=== PATIENT | male | born 1945 | race Caucasian/White ===

== ENCOUNTER 2020-11-23 19:19 | Emergency (ER) | payer MEDICARE, OTHER ==
[~2020-11-23] VITALS: Ht 177.8 cm; Wt 103.0 kg
[2020-11-23 20:04] LABS: HEMATOCRIT 48 % (40-54); HEMOGLOBIN 16.8 G/DL (13.3-17.7); MEAN CORPUSCULAR HEMOGLOBIN 31 PG (25-34); MEAN CORPUSCULAR VOLUME 89 FL (80-99); WHITE BLOOD COUNT 10.2 10^3/uL (4.3-11.0)
[2020-11-23 20:05] LABS: BASOPHILS % (AUTO) 0 % (0-10); EOSINOPHILS % (AUTO) 0 % (0-10); LYMPHOCYTES % (AUTO) 20 % (12-44); MEAN CORPUSCULAR HGB CONC 35 G/DL (32-36); MEAN PLATELET VOLUME 10.1 FL (7.4-10.4); MONOCYTES # (AUTO) 0.8 X 10^3 (0.0-1.0); MONOCYTES % (AUTO) 8 % (0-12); NEUTROPHILS # (AUTO) 7.4 X 10^3 (1.8-7.8); NEUTROPHILS % (AUTO) 72 % (42-75); PLATELET COUNT 290 10^3/uL (130-400)
[2020-11-23 20:09] LABS: BACTERIA,URINE NEGATIVE /HPF; BILIRUBIN,URINE NEGATIVE (NEGATIVE); CLARITY,URINE CLEAR; COLOR,URINE YELLOW; GLUCOSE, URINE (UA) NEGATIVE (NEGATIVE); KETONES,URINE TRACE (NEGATIVE); LEUKOCYTE ESTERASE ,URINE NEGATIVE (NEGATIVE); NITRITE,URINE NEGATIVE (NEGATIVE); PROTEIN,URINE NEGATIVE (NEGATIVE); RBC,URINE 0-2 /HPF
[2020-11-23 20:22] LABS: CHLORIDE 102 MMOL/L (98-107); POTASSIUM 4.1 MMOL/L (3.6-5.0); SODIUM 140 MMOL/L (135-145)
[2020-11-23 20:23] LABS: ALANINE AMINOTRANSFERASE 30 U/L (0-55); ALBUMIN 4.5 GM/DL (3.2-4.5); ALKALINE PHOSPHATASE 93 U/L (40-136); BILIRUBIN,TOTAL 0.6 MG/DL (0.1-1.0); BUN/CREATININE RATIO 19; CALCIUM 9.6 MG/DL (8.5-10.1); CARBON DIOXIDE 24 MMOL/L (21-32); CREATININE SERUM 0.81 MG/DL (0.60-1.30); GFR ESTIMATED > 60; GLUCOSE 153 MG/DL (70-105); LIPASE 34 U/L (8-78); TOTAL PROTEIN 7.9 GM/DL (6.4-8.2)
[2020-11-23] MEDS ORDERED: ONDANSETRON 4 MG/2 ML (SDV) Z0FRAN ONE (20:35)
[2020-11-23] MEDS ORDERED: fentaNYL INJECTION 100 MCG/2 ML AMP IVP ONE ×2 (20:45→22:15)
[2020-11-23] MEDS ORDERED: ONDANSETRON 4 MG/2 ML (SDV) Z0FRAN IVP ONE (20:45)
[2020-11-23] MEDS ORDERED: NS 100 ML (IVPB) BAG IV ONE (21:15)
[2020-11-23] MEDS ORDERED: IOHEXOL 350 MG/ML 100 ML (OMNIPAQUE 350) VIAL IV ONE (21:15)
[2020-11-23] MEDS ORDERED: HOLD METFORMIN - RECEIVED CONTRAST 20 ML VIAL IV SCH (21:15)
--- NOTE | 2020-11-23 21:23 | ED General ---
General Chief Complaint: Abdominal/GI Problems Stated Complaint: STOMACHE PAIN/VOMITING Nursing Triage Note: PT AMBULATE TO ROOM FS01 WITH C/O ABD PAIN, N/V. PT DENIES DIARRHEA, COUGH, FEVER. Nursing Sepsis Screen: No Definite Risk Source of Information: Patient History of Present Illness Date Seen by Provider: Nov 23, 2020 Time Seen by Provider: 19:25 Initial Comments Patient is a 75-year-old male with history of umbilical hernia repair who presents with diffuse midabdominal pain nausea vomiting episodes the past several hours. Patient states symptoms are worse after eating and drinking. Reports normal bowel movement this morning with very little flatus this afternoon. No fever chills, cough, sore throat. No chest pain palpitation shortness of breath. No urinary frequency urgency sure area. No other acute symptoms or complaints. Timing/Duration: 4-6 Hours Severity: Moderate Modifying Factors: improves with Eating Associated Systoms: Nausea/Vomiting Allergies and Home Medications Allergies Coded Allergies: No Known Allergies (Verified Allergy, Unknown, 11/23/20) Patient Home Medication List Home Medication List Reviewed: Yes Review of Systems Review of Systems Constitutional: no symptoms reported EENTM: no symptoms reported Respiratory: no symptoms reported Cardiovascular: no symptoms reported Gastrointestinal: no symptoms reported Genitourinary: no symptoms reported Musculoskeletal: no symptoms reported Skin: no symptoms reported Psychiatric/Neurological: No Symptoms Reported Hematologic/Lymphatic: No Symptoms Reported Immunological/Allergic: no symptoms reported All Other Systems Reviewed Negative Unless Noted: Yes Past Wlivfax-Jsqxtp-Ymziqq Hx Past Med/Social Hx: Reviewed Nursing Past Med/Soc Hx Patient Social History Alcohol Use: Occasionally Uses Recreational Drug Use: No Smoking Status: Never a Smoker Type Used: Smokeless Tobacco 2nd Hand Smoke Exposure: No Recent Foreign Travel: No Contact w/Someone Who Travel: No Recent Infectious Disease Expo: No Recent Hopitalizations: No Physical Abuse: No Sexual Abuse: No Mistreated: No Fear: No Seasonal Allergies Seasonal Allergies: Yes Past Medical History Surgeries: Yes Abdominal Respiratory: No Cardiac: Yes High Cholesterol, Hypertension Neurological: No ("BOTTOM TWO VALVES OF THE HEART HAVE A LEAK") Genitourinary: No Gastrointestinal: Yes Gall Bladder Disease Musculoskeletal: Yes Arthritis, Chronic Back Pain, Fractures Endocrine: Yes Diabetes, Non-Insulin dep HEENT: No Cancer: No Psychosocial: No Integumentary: No Blood Disorders: No Physical Exam Vital Signs Vital Signs - First Documented 11/23/20 19:28 Temp 36.5 Pulse 99 Resp 17 B/P (MAP) 173/98 (123) O2 Delivery Room Air Capillary Refill : Less Than 3 Seconds Height, Weight, BMI Height: '" Weight: lbs. oz. kg; 32.00 BMI Method: General Appearance: No Apparent Distress Eyes: Bilateral Eye Normal Inspection, Bilateral Eye PERRL, Bilateral Eye EOMI HEENT: PERRL/EOMI, Normal ENT Inspection, Pharynx Normal, Moist Mucous Membranes Neck: Full Range of Motion, Non Tender, Supple Respiratory: Chest Non Tender, Lungs Clear Gastrointestinal: Soft, Abnormal Bowel Sounds, Distended, Hernia, Other (large incarcerated periumbilical hernia, unable to reduce.) Back: Normal Inspection Extremity: Normal Capillary Refill Neurologic/Psychiatric: Alert, Oriented x3 Focused Exam Sepsis Stage: Ruled Out Lactate Level 11/23/20 21:47: Lactic Acid Level 1.48 Lactic Acid Level Laboratory Tests Test 11/23/20 21:47 Lactic Acid Level 1.48 MMOL/L (0.50-2.00) Progress/Results/Core Measures Suspected Sepsis Recent Fever Within 48 Hours: No Infection Criteria Present: None New/Unexplained Altered Menta: No Sepsis Screen: No Definite Risk SIRS Temperature: Pulse: 99 Respiratory Rate: 17 Laboratory Tests 11/23/20 19:49: White Blood Count 10.2 Blood Pressure 173 /98 Mean: 123 11/23/20 21:47: Lactic Acid Level 1.48 Laboratory Tests 11/23/20 19:49: Platelet Count 290 11/23/20 19:57: Creatinine 0.81, Total Bilirubin 0.6 Results/Orders Lab Results Laboratory Tests Test 11/23/20 19:49 11/23/20 19:57 11/23/20 19:59 11/23/20 21:47 Range/Units White Blood Count 10.2 4.3-11.0 10^3/uL Red Blood Count 5.39 4.35-5.85 10^6/uL Hemoglobin 16.8 13.3-17.7 G/DL Hematocrit 48 40-54 % Mean Corpuscular Volume 89 80-99 FL Mean Corpuscular Hemoglobin 31 25-34 PG Mean Corpuscular Hemoglobin Concent 35 32-36 G/DL Red Cell Distribution Width 12.1 10.0-14.5 % Platelet Count 290 130-400 10^3/uL Mean Platelet Volume 10.1 7.4-10.4 FL Immature Granulocyte % (Auto) 0 % Neutrophils (%) (Auto) 72 42-75 % Lymphocytes (%) (Auto) 20 12-44 % Monocytes (%) (Auto) 8 0-12 % Eosinophils (%) (Auto) 0 0-10 % Basophils (%) (Auto) 0 0-10 % Neutrophils # (Auto) 7.4 1.8-7.8 X 10^3 Lymphocytes # (Auto) 2.0 1.0-4.0 X 10^3 Monocytes # (Auto) 0.8 0.0-1.0 X 10^3 Eosinophils # (Auto) 0.0 0.0-0.3 10^3/uL Basophils # (Auto) 0.0 0.0-0.1 10^3/uL Immature Granulocyte # (Auto) 0.0 0.0-0.1 10^3/uL Sodium Level 140 135-145 MMOL/L Potassium Level 4.1 3.6-5.0 MMOL/L Chloride Level 102 98-107 MMOL/L Carbon Dioxide Level 24 21-32 MMOL/L Anion Gap 14 5-14 MMOL/L Blood Urea Nitrogen 15 7-18 MG/DL Creatinine 0.81 0.60-1.30 MG/DL Estimat Glomerular Filtration Rate > 60 BUN/Creatinine Ratio 19 Glucose Level 153 H 70-105 MG/DL Calcium Level 9.6 8.5-10.1 MG/DL Corrected Calcium 9.2 8.5-10.1 MG/DL Total Bilirubin 0.6 0.1-1.0 MG/DL Aspartate Amino Transf (AST/SGOT) 24 5-34 U/L Alanine Aminotransferase (ALT/SGPT) 30 0-55 U/L Alkaline Phosphatase 93 40-136 U/L Total Protein 7.9 6.4-8.2 GM/DL Albumin 4.5 3.2-4.5 GM/DL Lipase 34 8-78 U/L Urine Color YELLOW Urine Clarity CLEAR Urine pH 7.0 5-9 Urine Specific [place] 1.015 L 1.016-1.022 Urine Protein NEGATIVE NEGATIVE Urine Glucose (UA) NEGATIVE NEGATIVE Urine Ketones TRACE H NEGATIVE Urine Nitrite NEGATIVE NEGATIVE Urine Bilirubin NEGATIVE NEGATIVE Urine Urobilinogen 0.2 < = 1.0 MG/DL Urine Leukocyte Esterase NEGATIVE NEGATIVE Urine RBC (Auto) NEGATIVE NEGATIVE Urine RBC 0-2 /HPF Urine WBC NONE /HPF Urine Squamous Epithelial Cells NONE /HPF Urine Crystals NONE /LPF Urine Bacteria NEGATIVE /HPF Urine Casts NONE /LPF Urine Mucus MODERATE H /LPF Urine Culture Indicated NO Lactic Acid Level 1.48 0.50-2.00 MMOL/L My Orders Orders - DANO HOLLAND DO Cbc With Automated Diff (11/23/20 19:49) Comprehensive Metabolic Panel (11/23/20 19:49) Lipase (11/23/20 19:49) Ua Culture If Indicated (11/23/20 19:49) Ondansetron Injection (Zofran Injectio (11/23/20 20:35) Fentanyl Injection (Sublimaze Injection (11/23/20 20:45) Ondansetron Injection (Zofran Injectio (11/23/20 20:45) Ct Abdomen/Pelvis W (11/23/20 20:45) Iohexol Injection (Omnipaque 350 Mg/Ml 1 (11/23/20 21:15) Received Contrast (Hold Metformin- Contr (11/23/20 21:15) Ns (Ivpb) (Sodium Chloride 0.9% Ivpb Bag (11/23/20 21:15) Lactic Acid Analyzer (11/23/20 21:29) Fentanyl Injection (Sublimaze Injection (11/23/20 22:15) Medications Given in ED Current Medications Medications Dose Ordered Sig/Archana Route Start Time Stop Time Status Last Admin Dose Admin Fentanyl Citrate 50 mcg ONCE ONCE IVP 11/23/20 20:45 11/23/20 20:47 DC 11/23/20 21:37 50 MCG Fentanyl Citrate 100 mcg ONCE ONCE IVP 11/23/20 22:15 11/23/20 22:16 DC 11/23/20 22:16 100 MCG Iohexol 100 ml ONCE ONCE IV 11/23/20 21:15 11/23/20 21:48 DC 11/23/20 21:16 100 ML Ondansetron HCl 4 mg ONCE ONCE IVP 11/23/20 20:45 11/23/20 20:47 DC 11/23/20 21:37 4 MG Sodium Chloride 100 ml ONCE ONCE IV 11/23/20 21:15 11/23/20 21:48 DC 11/23/20 21:16 80 ML Vital Signs/I&O 11/23/20 19:28 Temp 36.5 Pulse 99 Resp 17 B/P (MAP) 173/98 (123) O2 Delivery Room Air Capillary Refill : Less Than 3 Seconds Blood Pressure Mean: 123 Departure Communication (Admissions) CT abdomen and pelvis: Ventral wall hernia containing small bowel with proximal dilatation of bowel consistent with PSB oh. Lab, imaging reviewed. Exam and findings consistent with early partial small bowel obstruction with ventral wall hernia and incarcerated bowel. Patient given fentanyl and hernia easily reduced on first attempt. Patient monitored in the emergency department with resolution of symptoms and without recurrence of hernia. Patient given strict discharge instructions to avoid lifting, straining with bowel movements Impression Primary Impression: Abdominal pain Additional Impression: Incarcerated hernia of abdominal cavity Disposition: 01 HOME, SELF-CARE Condition: Stable Departure-Patient Inst. Referrals: JESSICA ISABEL MD (PCP/Family) Primary Care Physician Patient Instructions: Abdominal Hernia (DC) Add. Discharge Instructions: Please avoid heavy lifting and straining during bowel movement. Follow-up with your PCP for neurosurgical referral. Return to the ED if abdominal pain/nausea return with symptoms lasting greater than 1 hour All discharge instructions reviewed with patient and/or family. Voiced understanding. DANO HOLLAND DO Nov 23, 2020 21:23
--- NOTE | 2020-11-23 21:43 | Diagnostic Imaging Report ---
EXAMINATION: CT abdomen and pelvis with intravenous contrast. TECHNIQUE: Multiple contiguous axial images were obtained through the abdomen and pelvis after the uneventful administration of intravenous contrast. All CT scans use one or more of the following dose optimizing techniques: automated exposure control, MA and/or KvP adjustment based on patient size and exam type or iterative reconstruction. HISTORY: Abdominal pain, nausea and vomiting. COMPARISON: None available. FINDINGS: Limited views of the lower thorax show coronary artery calcifications. The liver is normal without focal lesion. There is no biliary ductal dilation. Gallbladder is normal. Pancreas is normal. Spleen is normal. Adrenal glands are normal. The kidneys are normal. There is no hydronephrosis. Urinary bladder is normal. Visualized bowel is normal in caliber without obstruction or inflammation. There is a bowel containing ventral hernia. There is dilation of the herniated portion of bowel with mild upstream bowel dilation. There is surrounding fat stranding within the hernia sac. No free fluid or air. No abdominal or pelvic lymphadenopathy. Aorta is normal in caliber without aneurysm. There are no suspicious osseus lesions. IMPRESSION: Bowel containing ventral hernia with dilation of the herniated bowel and surrounding stranding. There is also mild dilation of the upstream bowel. Findings concerning for early or partial obstruction due to the hernia. Dictated by: Dictated on workstation # [id number]
[2020-11-23 23:14] VITALS: BP 145/71
== END 2020-11-23 23:14 | disposition home or self-care (01) ==
LOC: ER FS 19:25
DX: R10.84 Generalized abdominal pain (principal); K45.0 Other specified abdominal hernia with obstruction, without gangrene
CPT/HCPCS: 36415; 74177; 80053; 81000; 83605; 83690; 85025

== ENCOUNTER 2020-12-22 05:33 | Outpatient (RCR) | payer MEDICARE ==
[~2020-12-22] VITALS: Ht 177.8 cm; Wt 99.8 kg
[~2020-12-22 05:33] MED LIST: ASPI325T32 PO; ATOR10TA66 PO; LISI10TA2 PO; MULT-1136 PO; VERA240C2 PO
== END 2020-12-22 11:17 | disposition home or self-care (01) ==
LOC: PREOP 05:33
PROVIDERS: ATTEND Surgery
DX: Z01.818 Encounter for other preprocedural examination (principal); K43.2 Incisional hernia without obstruction or gangrene; K43.9 Ventral hernia without obstruction or gangrene; Z20.822 Contact with and (suspected) exposure to COVID-19
CPT/HCPCS: 87635

== ENCOUNTER 2020-12-25 10:25 | Day surgery (SDC) | payer MEDICARE, OTHER ==
[~2020-12-25] VITALS: Ht 177.8 cm; Wt 99.8 kg
[2020-12-25] VITALS (10 sets, daily range): BP systolic 110–151; BP diastolic 75–103
[2020-12-25] MEDS ORDERED: ceFAZolin 2 GM IV Premixed 50 ML IV ONE (10:45)
[2020-12-25] MEDS: LACTATED RINGERS 1,000 ML IV PRN ×2 (10:57→13:28)
--- NOTE | 2020-12-25 11:01 | Progress Note-Pre Operative ---
Pre-Operative Progress Note H&P Reviewed The H&P was reviewed, patient examined and no changes noted. Date Seen by Provider: Dec 25, 2020 Time Seen by Provider: 11:00 Date H&P Reviewed: Dec 25, 2020 Time H&P Reviewed: 10:55 Pre-Operative Diagnosis: incarcerated ventral abdominal incisional hernia LAUREL SCHROEDER APRN Dec 25, 2020 11:01
[2020-12-25] MEDS ORDERED: HYDR-4227 PO (11:02)
--- NOTE | 2020-12-25 11:02 | Discharge Inst-Surgical ---
D/C Lap Instructions-KIDO Reconcile Patient Problems Problems Reviewed?: Yes New, Converted, or Re-Newed RX: RX on Chart Follow Up Appt in 2 weeks Activity as tolerated No driving for 24 hours No driving while on pain medications Incentive Spirometry use every 2 hours while awake Regular Diet Symptoms to Report: Fever over 101 degree F, Nausea/Vomiting Infection Signs and Symptoms to report: Increased redness, Foul odor of wound, Increased drainage Bathing instructions: May shower Operative Area Clean/Dry; Keep incision clean/dry If any problems/questions: Contact your physician or go to Emergency Room LAUREL SCHROEDER APRN Dec 25, 2020 11:02
[2020-12-25] MEDS ORDERED: ONDANSETRON 4 MG/2 ML (SDV) Z0FRAN IVP PRN ×2 (11:15→14:15)
[2020-12-25] MEDS ORDERED: ACETAMINOPHEN 325 MG TABLET PO PRN (11:15)
[2020-12-25] MEDS ORDERED: morphine INJ 10 MG/ML 1ML (SYR OR VIAL) IVP PRN (11:15)
[2020-12-25] MEDS ORDERED: HYDROcodone/APAP 5 MG/325 MG (LORTAB) TAB PO ONE (11:15)
[2020-12-25] MEDS ORDERED: LIDOCAINE/EPI 1%-1:100,000 (XYLOCAINE) 50 ML ONE (11:54)
[2020-12-25] MEDS ORDERED: GLYCOPYRROLATE 0.2 MG/ML (ROBINUL) 2 ML VIAL ONE (12:23)
[2020-12-25] MEDS ORDERED: LIDOCAINE PF 2% 5 ML (XYLOCAINE) VIAL ONE (12:23)
[2020-12-25] MEDS ORDERED: SEVOFLURANE (ULTANE) 15 ML INHAL SOLN ONE (12:23)
[2020-12-25] MEDS ORDERED: ROCURONIUM 10 MG/ML 5 ML SYRINGE IV ONE (12:23)
[2020-12-25] MEDS ORDERED: proPOfol 200 MG/20 ML (DIPRIVAN) VIAL IV ONE (12:23)
[2020-12-25] MEDS ORDERED: NEOSTIGMINE 3 MG/3 ML VIAL ONE (12:23)
[2020-12-25] MEDS ORDERED: MIDAZOLAM 2 MG/2 ML (VERSED) VIAL ONE (12:23)
[2020-12-25] MEDS ORDERED: ONDANSETRON 4 MG/2 ML (SDV) Z0FRAN ONE (12:23)
[2020-12-25] MEDS ORDERED: fentaNYL INJECTION 100 MCG/2 ML AMP ONE ×2 (12:24→13:45)
[2020-12-25] MEDS ORDERED: PHENYLEPHRINE 100 MCG/ML 10 ML (ANESTHESIA) SYR ONE (13:45)
--- NOTE | 2020-12-25 13:47 | Progress Note-Post Operative ---
Post-Operative Progess Note Surgeon (s)/Cat And Dog Bather (s) Surgeon TEJ HAM MD Cat And Dog Bather: elvis isaacs BAND [employer]W FILER Pre-Operative Diagnosis incarcerated ventral abdominal incisional hernia Post-Operative Diagnosis same Procedure & Operative Findings Date of Procedure 12/25/20 Procedure Performed/Findings open incarcerated ventral abd incisional hernia repair with mesh. Anesthesia Type get Estimated Blood Loss Estimated blood loss (mL): minimal Specimens/Packing Specimens Removed hernia sac TEJ HAM MD Dec 25, 2020 13:47
[2020-12-25] MEDS ORDERED: BUPIVACAINE 0.5% 30 ML (SENSORCAINE) VIAL ONE (14:14)
[2020-12-25] MEDS ORDERED: MEPERIDINE (DEMEROL) INJ 50 MG/ML IVP ONE (14:15)
[2020-12-25] MEDS ORDERED: fentaNYL INJECTION 100 MCG/2 ML AMP IVP ONE (14:15)
[2020-12-25] MEDS ORDERED: morphine INJ 10 MG/ML 1ML (SYR OR VIAL) IVP ONE (14:15)
[2020-12-25] MEDS ORDERED: ISOFLURANE (FORANE) 15 ML/15 MIN INHALATION ONE (14:15)
[2020-12-25] MEDS ORDERED: HYDROcodone/APAP 5 MG/325 MG (LORTAB) TAB ONE (15:43)
--- NOTE | 2020-12-25 18:12 | OPERATIVE REPORT ---
DATE OF SERVICE: 12/25/2020 ATTENDING PRIMARY CARE PHYSICIAN: Dr. Jero Klein. PREOPERATIVE DIAGNOSIS: Incarcerated ventral abdominal incisional hernia. POSTOPERATIVE DIAGNOSIS: Incarcerated ventral abdominal incisional hernia with omentum within the hernia sac. PROCEDURE: Open repair of incarcerated ventral abdominal incisional hernia repair with mesh. SURGEON: Tej Ham MD HARVESTING SUPERVISOR: Anuel Bah APRN ANESTHESIA: General endotracheal. ESTIMATED BLOOD LOSS: Minimal. FINDINGS: Same as postoperative diagnoses. DISPOSITION: The patient tolerated the procedure well. INDICATIONS: The patient is a 75-year-old male referred over to us for a ventral abdominal incisional hernia, which he reports a history of having an umbilical hernia repair approximately 2 years ago. Since that time, he reports reoccurrence and states that several weeks ago, the lesion became profoundly larger in size and significantly painful and was seen by his primary care physician, found to have an incarcerated ventral abdominal incisional hernia. He is otherwise tolerating a regular diet and having normal bowel movements and showing no signs of obstruction. DESCRIPTION OF PROCEDURE: The patient was brought to the operating room, laid supine on the table. After adequate IV pain and sedative medications and general endotracheal intubation, the abdomen was prepped and draped in standard surgical fashion. A 0.5% Marcaine with epinephrine was used to anesthetize the supraumbilical rim and a crescent-shaped skin incision made using a 15 blade. The hernia sac was identified and completely dissected out using blunt dissection as well as electrocautery. The hernia sac was then opened using cautery with greater omentum within the hernia sac. The hernia sac was then completely excised using an electrocautery under direct visualization. The greater omentum was then reduced back into the peritoneal cavity. The defect was approximately 2.5 to 3 cm in size. An 8 cm round-coated polypropylene mesh was placed in an underlay technique and sutured transfascially to the mesh using interrupted 0 Prolene sutures with visualization of good hemostasis. The subcutaneous tissue was then reapproximated using 4-0 Monocryl running subcuticular suture. Wound was then cleaned and covered with Dermabond followed by tonsil sponges, 4 x 4 large Op-Site and abdominal binder. The patient tolerated the procedure well. We will start IV normal pain medication as well as a clear liquid diet. Once he is tolerating clears, has good pain control with oral pain medications, ambulating well, we will discharge him home. He will be instructed to do no heavy lifting or exertion for the next two weeks as well as to wear the abdominal binder as well for the next two weeks. Job ID: [id number] DocumentID: [id number] Dictated Date: 12/25/2020 13:52:58 Flavoring Oil Filterer Date: 12/25/2020 18:11:52 Dictated By: TEJ HAM MD
== END 2020-12-25 16:40 | disposition home or self-care (01) ==
LOC: SDC 10:25
PROVIDERS: ATTEND Surgery
DX: K43.0 Incisional hernia with obstruction, without gangrene (principal); I10 Essential (primary) hypertension; E11.9 Type 2 diabetes mellitus without complications; G89.29 Other chronic pain; E78.00 Pure hypercholesterolemia, unspecified; M54.5 Low back pain; Z79.82 Long term (current) use of aspirin; Z79.899 Other long term (current) drug therapy
CPT/HCPCS: 49561; 49568; 87081; C1781

== ENCOUNTER 2020-12-27 14:44 | Emergency (ER) | payer MEDICARE ==
[~2020-12-27] VITALS: Ht 177.8 cm; Wt 98.6 kg
[~2020-12-27 14:44] MED LIST changes: +HYDR-4227 PO
[2020-12-27] MEDS ORDERED: fentaNYL INJECTION 100 MCG/2 ML AMP IVP ONE (15:15)
--- NOTE | 2020-12-27 15:20 | ED Abdominal Pain ---
General Chief Complaint: Abdominal/GI Problems Stated Complaint: HERNIA SURGERY, PAIN AROUND [place] Nursing Triage Note: AMB TO ED WITH C/O OF ABD PAIN. HAD SURG ON TUESDAY BY DR RUEDA FOR HERNIA REPAIR.HAS ABD BINDER IN PLACE. PATIENT REPORTS ABD FEELING MORE DISTENDED. Sepsis Screen: No Definite Risk Source of Information: Patient Exam Limitations: No Limitations History of Present Illness Date Seen by Provider: Dec 27, 2020 Time Seen by Provider: 15:05 Initial Comments Patient is a 75-year-old male who presents to the emergency department today with a chief complaint of increasing abdominal distention and pain. Patient is postop day #2 of an incarcerated ventral hernia repair by Dr. Rueda. He presents with an abdominal binder in place. Patient states that yesterday his pain was v hussain well controlled with his home pain medications. Today he states that the pain is increasing and the pain pills seem to make his abdomen hurt worse. Patient states that he has not had a bowel movement since before surgery on Tuesday. He denies feeling nauseated. But he does complain of bloating. Patient states he is not urinated very much today but he also has no appetite and is unable to take down anything by mouth secondary to the abdominal discomfort. He states the most fluid he has had is maybe about 6 ounces today. Unknown fever as the patient did not take his temperature. No other complaints of illness or injury. All other review of systems reviewed and negative except as stated. Timing/Duration: 24 Hours Severity/Quality: Severe, Aching, Cramping Location: Generalized Abdomen Radiation: No Radiation Activities at Onset: None Modifying Factors: Improves With Analgesics (Pain pills helped yesterday but not today.) Associated Symptoms: Other (Decreased appetite, increased thirst) Allergies and Home Medications Allergies Coded Allergies: No Known Allergies (Verified Allergy, Unknown, 11/23/20) Home Medications Aspirin 325 Mg Tablet.dr, 325 MG PO DAILY, (Reported) Atorvastatin Calcium 10 Mg Tablet, 10 MG PO DAILY, (Reported) Hydrocodone/Acetaminophen 1 Each Tablet, 1-2 TAB PO Q4H Prescribed by: LAUREL SCHROEDER on 12/25/20 1102 Lisinopril 10 Mg Tablet, 10 MG PO DAILY, (Reported) Multivitamin 1 Each Tablet, 1 EACH PO DAILY, (Reported) Verapamil HCl 240 Mg Cap24h.pel, 240 MG PO DAILY, (Reported) Patient Home Medication List Home Medication List Reviewed: Yes Review of Systems Review of Systems Constitutional: see HPI EENTM: Other (Dry mouth) Respiratory: No Symptoms Reported Cardiovascular: No Symptoms Reported Gastrointestinal: Abdomen Distended, Abdominal Pain, Other (Unable to have a bowel movement) Genitourinary: Other (Decreased urinary output) Musculoskeletal: no symptoms reported Skin: no symptoms reported All Other Systems Reviewed Negative Unless Noted: Yes Past Zpjeuoi-Ybaihf-Aqufwh Hx Patient Social History Alcohol Beverage of Choice: Beer Type Used: Smokeless Tobacco Former Smoker, Quit: Dec 19, 1970 2nd Hand Smoke Exposure: No Recent Infectious Disease Expo: No Recent Hopitalizations: No Immunizations Up To Date PED Vaccines UTD: No Date of Influenza Vaccine: Sep 28, 2020 Seasonal Allergies Seasonal Allergies: No Past Medical History Surgeries: Yes Abdominal Respiratory: No Cardiac: Yes High Cholesterol, Hypertension Neurological: No ("BOTTOM TWO VALVES OF THE HEART HAVE A LEAK") Genitourinary: No Gastrointestinal: Yes Gall Bladder Disease Musculoskeletal: Yes Arthritis, Chronic Back Pain Endocrine: Yes (BORDERLINE) Diabetes, Non-Insulin dep HEENT: No Cancer: No Psychosocial: No Integumentary: No Blood Disorders: No Physical Exam Vital Signs Vital Signs - First Documented 12/27/20 14:59 Temp 36.8 Pulse 115 Resp 18 B/P (MAP) 116/89 (98) Pulse Ox 98 O2 Delivery Room Air Capillary Refill : Less Than 3 Seconds Height/Weight/BMI Height: '" Weight: lbs. oz. kg; 31.00 BMI Method: General Appearance: WD/WN, mild distress HEENT: other (Dry oral mucosa) Neck: normal inspection Respiratory: lungs clear, normal breath sounds, no respiratory distress, no accessory muscle use Cardiovascular: regular rate, rhythm, tachycardia Gastrointestinal: soft, abnormal bowel sounds (Hyperactive tinkling bowel sounds), distended (Bloated and distended abdomen), guarding, tenderness (Diffuse abdominal tenderness), other (Umbilical hernia repair scar looks well, no erythema no drainage) Extremities: normal range of motion, non-tender, normal inspection, no pedal edema Neurologic/Psychiatric: alert, normal mood/affect, oriented x 3 Skin: normal color, warm/dry Progress/Results/Core Measures Results/Orders Lab Results Laboratory Tests Test 12/27/20 15:19 Range/Units White Blood Count 11.9 H 4.3-11.0 10^3/uL Red Blood Count 5.05 4.30-5.52 10^6/uL Hemoglobin 15.4 13.3-17.7 g/dL Hematocrit 46 40-54 % Mean Corpuscular Volume 92 80-99 fL Mean Corpuscular Hemoglobin 31 25-34 pg Mean Corpuscular Hemoglobin Concent 33 32-36 g/dL Red Cell Distribution Width 12.7 10.0-14.5 % Platelet Count 247 130-400 10^3/uL Mean Platelet Volume 10.4 9.0-12.2 fL Immature Granulocyte % (Auto) 0 % Neutrophils (%) (Auto) 70 42-75 % Lymphocytes (%) (Auto) 19 12-44 % Monocytes (%) (Auto) 9 0-12 % Eosinophils (%) (Auto) 2 0-10 % Basophils (%) (Auto) 0 0-10 % Neutrophils # (Auto) 8.3 H 1.8-7.8 X 10^3 Lymphocytes # (Auto) 2.3 1.0-4.0 X 10^3 Monocytes # (Auto) 1.1 H 0.0-1.0 X 10^3 Eosinophils # (Auto) 0.2 0.0-0.3 10^3/uL Basophils # (Auto) 0.0 0.0-0.1 10^3/uL Immature Granulocyte # (Auto) 0.0 0.0-0.1 10^3/uL Sodium Level 137 135-145 MMOL/L Potassium Level 3.7 3.6-5.0 MMOL/L Chloride Level 101 98-107 MMOL/L Carbon Dioxide Level 22 21-32 MMOL/L Anion Gap 14 5-14 MMOL/L Blood Urea Nitrogen 18 7-18 MG/DL Creatinine 0.92 0.60-1.30 MG/DL Estimat Glomerular Filtration Rate > 60 BUN/Creatinine Ratio 20 Glucose Level 180 H 70-105 MG/DL Calcium Level 9.3 8.5-10.1 MG/DL My Orders Orders - MARIAM MAGDALENO MD Ed Iv/Invasive Line Start (12/27/20 15:13) Cbc With Automated Diff (12/27/20 15:13) Basic Metabolic Panel (12/27/20 15:13) Ct Abdomen/Pelvis Wo (12/27/20 15:13) Fentanyl Injection (Sublimaze Injection (12/27/20 15:15) Medications Given in ED Current Medications Medications Dose Ordered Sig/Archana Route Start Time Stop Time Status Last Admin Dose Admin Fentanyl Citrate 50 mcg ONCE ONCE IVP 12/27/20 15:15 12/27/20 15:16 DC 12/27/20 15:26 50 MCG Vital Signs/I&O 12/27/20 14:59 Temp 36.8 Pulse 115 Resp 18 B/P (MAP) 116/89 (98) Pulse Ox 98 O2 Delivery Room Air Blood Pressure Mean: 98 Progress Progress Note : Time: 15:19 Progress Note 75-year-old male presents today with a chief complaint of increasing abdominal pain postop day 2 ventral hernia repair. Evaluation today includes a physical exam, CBC, BMP, CT scan of the abdomen and pelvis without contrast. Patient is treated in the emergency department with 50 mcg of fentanyl. Disposition to be determined after reviewing the lab work and CT scan of the abdomen and pelvis. Dr. Urena is on for general surgery, will contact him once the CT is obtained. [address] shows findings consistent with an ileus. Patient is strongly encouraged to ambulate as much as possible. He is advised to take his pain pills only as needed, stretching those doses out as far apart as 6 hours if he can. Patient verbalizes understanding. I have encouraged him to drink plenty of fluids to stay well-hydrated. Patient's labs have been reviewed and are unremarkable he does have a very minimal elevation in his white blood cell count otherwise his CBC is normal his chemistry is normal. Patient is afebrile. Vital signs are stable. Heart rate is 88, blood pressure is within normal limits. Patient will be discharged home, supportive care. He again is advised to ambulate around his home is much as possible using care not to lift anything heavy. He is to keep his follow-up appointment in [address] Rueda. All questions are sought and answered. Patient is stable for discharge. Diagnostic Imaging Diagonstic Imaging: CT Plain Films/CT/US/NM/MRI: abdomen Comments [facility] [place], [place] NAME: SAMI COOL [facility] REC#: [id number] PT STATUS: REG ER : 1945 PHYSICIAN: MARIAM MAGDALENO MD ADMIT DATE: 12/27/20/ER Signed Date of Exam:12/27/20 CT ABDOMEN/PELVIS WO EXAMINATION: CT abdomen and pelvis without contrast. TECHNIQUE: Multiple contiguous axial images were obtained through the abdomen and pelvis without the use of intravenous contrast. All CT scans use one or more of the following dose optimizing techniques: automated exposure control, MA and/or KvP adjustment based on patient size and exam type or iterative reconstruction. HISTORY: Abdominal pain and distention, recent hernia repair. COMPARISON: 11/23/2020. FINDINGS: Limited views of the lower thorax show mild atelectasis and coronary artery calcifications. The liver is normal without focal lesion. There is no biliary ductal dilation. Gallbladder is normal. Pancreas is normal. Spleen is normal. Calcifications in the right adrenal gland are suggestive of prior hemorrhage. The kidneys are normal. There is no hydronephrosis. Urinary bladder is normal. Colon is mildly dilated without evidence for obstruction. Findings consistent with ileus. There are postsurgical changes of ventral hernia with small amount of gas in the subcutaneous tissues and peritoneum. No drainable fluid collection is seen. No abdominal or pelvic lymphadenopathy. Aorta is normal in caliber without aneurysm. There are no suspicious osseus lesions. IMPRESSION: Postsurgical changes of ventral hernia repair without drainable fluid collection. Dictated by: Dictated on workstation # [id number] Dict: 12/27/20 1551 Trans: 12/27/20 1607 [facility] [id number] Interpreted by: POONAM MIMS MD Electronically signed by: POONAM MIMS MD 12/27/20 1607 Departure Impression Primary Impression: Abdominal pain Qualified Codes: R10.84 - Generalized abdominal pain Additional Impression: Ileus following gastrointestinal surgery Disposition: 01 HOME, SELF-CARE Condition: Stable Departure-Patient Inst. Decision time for Depature: 16:17 Referrals: TEJ RUEDA MD SELF,JESSICA GARCIA (PCP/Family) Primary Care Physician Patient Instructions: Postoperative Ileus (DC) Add. Discharge Instructions: Drink plenty of fluids to stay well-hydrated. You can take qctb-omk-anrijls medications such as Gas-X to help alleviate the bloating sensation. Get up and walk around as much as possible to help improve your symptoms. Continue to wear your abdominal binder as instructed. Take your pain pills as needed try and stretch out the doses to every 6 hours if possible. Alternate with Tylenol or ibuprofen. Come back to the emergency department for worsening pain, fever over 101, nausea vomiting or any other emergent concerning symptoms. Copy Copies To 1: TEJ RUEDA MD, KATHRYN M MD Dec 27, 2020 15:20
[2020-12-27 15:28] LABS: BASOPHILS % (AUTO) 0 % (0-10); EOSINOPHILS # (AUTO) 0.2 10^3/uL (0.0-0.3); EOSINOPHILS % (AUTO) 2 % (0-10); HEMATOCRIT 46 % (40-54); HEMOGLOBIN 15.4 g/dL (13.3-17.7); LYMPHOCYTES # (AUTO) 2.3 X 10^3 (1.0-4.0); LYMPHOCYTES % (AUTO) 19 % (12-44); MEAN CORPUSCULAR HEMOGLOBIN 31 pg (25-34); MEAN CORPUSCULAR HGB CONC 33 g/dL (32-36); MEAN CORPUSCULAR VOLUME 92 fL (80-99); MEAN PLATELET VOLUME 10.4 fL (9.0-12.2); MONOCYTES # (AUTO) 1.1 X 10^3 (0.0-1.0); MONOCYTES % (AUTO) 9 % (0-12); NEUTROPHILS # (AUTO) 8.3 X 10^3 (1.8-7.8); NEUTROPHILS % (AUTO) 70 % (42-75); PLATELET COUNT 247 10^3/uL (130-400); WHITE BLOOD COUNT 11.9 10^3/uL (4.3-11.0)
--- NOTE | 2020-12-27 15:34 | NUR ---
PLACED ON 2L 02 SAT DOWN TO 90% AFTER PAIN MEDS.
[2020-12-27 15:38] LABS: CHLORIDE 101 MMOL/L (98-107); POTASSIUM 3.7 MMOL/L (3.6-5.0); SODIUM 137 MMOL/L (135-145)
[2020-12-27 15:39] LABS: CALCIUM 9.3 MG/DL (8.5-10.1)
[2020-12-27 15:40] LABS: GLUCOSE 180 MG/DL (70-105)
[2020-12-27 15:41] LABS: CARBON DIOXIDE 22 MMOL/L (21-32)
[2020-12-27 15:44] LABS: CREATININE SERUM 0.92 MG/DL (0.60-1.30); GFR ESTIMATED > 60
[2020-12-27 15:45] LABS: BUN/CREATININE RATIO 20
--- NOTE | 2020-12-27 15:58 | Diagnostic Imaging Report ---
EXAMINATION: CT abdomen and pelvis without contrast. TECHNIQUE: Multiple contiguous axial images were obtained through the abdomen and pelvis without the use of intravenous contrast. All CT scans use one or more of the following dose optimizing techniques: automated exposure control, MA and/or KvP adjustment based on patient size and exam type or iterative reconstruction. HISTORY: Abdominal pain and distention, recent hernia repair. COMPARISON: 11/23/2020. FINDINGS: Limited views of the lower thorax show mild atelectasis and coronary artery calcifications. The liver is normal without focal lesion. There is no biliary ductal dilation. Gallbladder is normal. Pancreas is normal. Spleen is normal. Calcifications in the right adrenal gland are suggestive of prior hemorrhage. The kidneys are normal. There is no hydronephrosis. Urinary bladder is normal. Colon is mildly dilated without evidence for obstruction. Findings consistent with ileus. There are postsurgical changes of ventral hernia with small amount of gas in the subcutaneous tissues and peritoneum. No drainable fluid collection is seen. No abdominal or pelvic lymphadenopathy. Aorta is normal in caliber without aneurysm. There are no suspicious osseus lesions. IMPRESSION: Postsurgical changes of ventral hernia repair without drainable fluid collection. Dictated by: Dictated on workstation # [id number]
[2020-12-27 16:28] VITALS: BP 128/77
== END 2020-12-27 16:39 | disposition home or self-care (01) ==
LOC: EDUNIT# 14:44 → ER 14:46
DX: R10.84 Generalized abdominal pain (principal); K91.81 Other intraoperative complications of digestive system; I10 Essential (primary) hypertension; E78.00 Pure hypercholesterolemia, unspecified; G89.29 Other chronic pain; M54.9 Dorsalgia, unspecified; Z87.891 Personal history of nicotine dependence; Z79.82 Long term (current) use of aspirin; Z79.891 Long term (current) use of opiate analgesic
CPT/HCPCS: 36415; 74176; 80048; 85025